=== PATIENT | male | born 1955 | race Caucasian/White ===

== ENCOUNTER 2024-04-25 15:43 | Emergency (ER) | payer MEDICARE ==
[2024-04-25] MEDS: Diphtheria,Pertussis(Acell),Tetanus Vaccine 0.5 ML Syringe IM ONE (18:40)
== END 2024-04-25 18:49 | disposition home or self-care (01) ==
LOC: JP.ED 15:43
DX: S61.012A Laceration without foreign body of left thumb without damage to nail, initial encounter (principal); Z23 Encounter for immunization; Z90.49 Acquired absence of other specified parts of digestive tract; Z79.899 Other long term (current) drug therapy; Z79.01 Long term (current) use of anticoagulants; Z88.0 Allergy status to penicillin; W26.0XXA Contact with knife, initial encounter
CPT/HCPCS: 12001; 90471; 90715; 99283-25